=== PATIENT | female | born 1955 | race Caucasian/White ===

== ENCOUNTER 2024-08-24 09:00 | Inpatient (IN) | payer MEDICARE ==
[~2024-08-24] VITALS: Ht 160 cm; Wt 91.1 kg
[2024-08-24] MEDS ORDERED: Ketorolac Tromethamine 30mg Vial IV ONE (09:30)
[2024-08-24] MEDS ORDERED: Ondansetron HCl 2 MG / ML 2ML Vial IV ONE (09:30)
[2024-08-24] MEDS ORDERED: NS 1,000 ML IV SCH ×2 (09:30→12:10)
[2024-08-24 09:41] LABS: BASOPHILS ABSOLUTE AUTO 0.04 K/mm3 (0.00-0.23); BASOPHILS PERCENT AUTO 0 % (0-2); EOSINOPHILS ABSOLUTE AUTO 0.16 K/mm3 (0.00-0.68); EOSINOPHILS PERCENT AUTO 1 % (0-6); Hematocrit 38.7 % (33.0-51.0); Hemoglobin 13.7 g/dL (11.5-16.0); IMMATURE GRAN ABSOLUTE AUTO 0.07 K/mm3 (0.00-0.10); IMMATURE GRAN PERCENT AUTO 0 % (0-1); LYMPHOCYTES ABSOLUTE AUTO 1.13 K/mm3 (0.84-5.20); LYMPHOCYTES PERCENT AUTO 6 % (21-46); MONOCYTES ABSOLUTE AUTO 1.47 K/mm3 (0.16-1.47); MONOCYTES PERCENT AUTO 8 % (4-13); Mean Corpuscular HGB 29.5 pg (26.0-34.0); Mean Corpuscular HGB Conc 35.4 g/dL (31.5-36.5); Mean Corpuscular Volume 83 fL (80-100); Mean Platelet Volume 10.7 fL (9.1-12.4); NEUTROPHILS ABSOLUTE AUTO 16.35 K/mm3 (1.96-9.15); NEUTROPHILS PERCENT AUTO 85 % (41-73); Platelet Count 301 K/mm3 (150-400); RDW Coefficient Variation 11.9 % (11.7-14.2); RDW Standard Deviation 36.1 fL (35.1-46.3); Red Blood Cell Count 4.65 M/mm3 (3.80-5.20); White Blood Cell Count 19.22 K/mm3 (4.00-11.30)
[2024-08-24 09:53] LABS: Albumin, Blood 3.3 g/dL (3.4-5.0); Albumin/Globulin Ratio 0.9 (0.8-1.8); Bilirubin, Direct 0.2 mg/dL (0.0-0.3); Bilirubin, Indirect 0.6 mg/dL (0.1-0.7); Bilirubin, Total 0.8 mg/dL (0.1-1.0); Bun/Creatinine Ratio 23.3 (12.0-20.0); Calcium, Blood 8.9 mg/dL (8.5-10.1); Creatinine, Blood 1.03 mg/dL (0.40-1.00); Globulin, Blood 3.7 g/dL (2.2-4.0); Potassium, Blood 3.5 mmol/L (3.5-5.5)
[2024-08-24 11:00] LABS: Source, Urine Clean Catch
[2024-08-24 11:08] LABS: Appearance, Urine Clear (Clear); Bilirubin, Urine Neg (Neg); Blood, Urine Neg (Neg); Color, Urine Yellow (P-Yellow); Glucose Qualitative, Urine Neg (Neg); Ketones, Urine Neg (Neg); Leukocyte Esterase, Urine Neg (Neg); Nitrite, Urine Neg (Neg); Protein, Urine 1+ (Neg); Specific Gravity, Urine 1.005 (1.003-1.022); Urobilinogen, Urine NORM (Normal)
[2024-08-24] MEDS ORDERED: Azithromycin 500 MG in NS 250 ML IV ONE (11:20)
[2024-08-24] MEDS ORDERED: HYDROmorphone HCl/Pf 1MG SYR IV PRN (12:05)
[2024-08-24] MEDS ORDERED: FLU VACC TS2024-25(6MOS UP)/PF 45 MCG/0.5 ML SYRINGE IM SCH (12:10)
[2024-08-24 12:59] LABS: Hematocrit 35.6 % (33.0-51.0); Hemoglobin 12.6 g/dL (11.5-16.0)
[2024-08-24 13:13] LABS: International Normalized Ratio 1.12; Prothrombin Time Results 11.9 Sec (9.7-11.5)
[2024-08-24 15:43] LABS: Automated BF RBC Count 0.006 M/mm3 (0-0); Automated BF WBC Count 1.884 K/mm3 (0-999)
[2024-08-24 15:44] LABS: Body Fluid WBC Count 1884 /mm3 (0-999); RBC Count, Body Fluid 6000 /mm3 (0-0)
[2024-08-24 15:49] VITALS: BP 120/59
[2024-08-24 15:49] LABS: Appearance, Body Fluid Cloudy (Clear)
[2024-08-24 15:57] LABS: Lactate Dehydrogenase, Body Fl 652 U/L
[2024-08-24] MEDS ORDERED: LOSARTAN-HCTZ1 EAC5 PO ×2 (16:10)
[2024-08-24] MEDS ORDERED: Bentyl10 MG PO ×2 (16:10)
[2024-08-24] MEDS ORDERED: FISH OIL PO ×2 (16:12)
[2024-08-24] MEDS ORDERED: VITAMIN E PO ×2 (16:12)
[2024-08-24] MEDS ORDERED: CRESTOR PO ×2 (16:14)
[2024-08-24] MEDS ORDERED: ELEMENTAL ZINC30 MG PO ×2 (16:14)
[2024-08-24] MEDS ORDERED: ASPI81CH PO ×2 (16:14)
[2024-08-24] MEDS ORDERED: VITAMIN D5000 UNIT PO ×2 (16:16)
[2024-08-24] MEDS ORDERED: TUMERIC PO ×2 (16:17)
[2024-08-24] MEDS ORDERED: CALCIUM PO ×2 (16:17)
[2024-08-24] MEDS ORDERED: COQ1050 MG PO ×2 (16:18)
[2024-08-24] MEDS ORDERED: K2 PO ×2 (16:19)
[2024-08-24 16:33] LABS: Total Cell Count, Body Fluid 100
[2024-08-24 16:44] LABS: Hematocrit 34.3 % (33.0-51.0); Hemoglobin 12.1 g/dL (11.5-16.0)
--- NOTE | 2024-08-24 17:22 | NUR ---
ADMISSION SUMMARY PT ADMITTED TO UNIT AT APPROX 1545 VIA WHEELCHAIR. PT ABLE TO STAND AND AMBULATE INDEPENDENTLY TO HOSPITAL BED. PT DENIES ANY CURRENT PAIN OR DISTRESS, REPORTS ABD PAIN HAS SUBSIDED SINCE DIALUDID AND PARACENTESIS. VITALS WNL. ADMISSION COMPLETED INCLUDING MED REC. CONSULT CALLED IN BY ELIAS FOR POSSSIBLE COLONOSCOPY. PT ORIENTED TO ROOM AND CALL LIGHT SYSTEM. PT RESTING IN BED WITH BED IN LOWEST POSITION AND CALL LIGHT WITHIN REACH. AT BEDSIDE.
[2024-08-24 18:34] LABS: Albumin, Body Fluid 2.5 g/dL
[2024-08-24 19:04] LABS: Protein, Body Fluid 4.5 g/dL
[2024-08-24 19:28] VITALS: BP 125/65
[2024-08-24] MEDS ORDERED: CefTRIAXone Sodium 1,000 MG in NS 100 ML IV SCH (20:00)
[2024-08-24 20:38] LABS: Hematocrit 36.3 % (33.0-51.0); Hemoglobin 12.5 g/dL (11.5-16.0)
[2024-08-25 00:45] LABS: Hematocrit 34.7 % (33.0-51.0); Hemoglobin 11.9 g/dL (11.5-16.0)
[2024-08-25 03:54] VITALS: BP 122/71
--- NOTE | 2024-08-25 05:49 | NUR ---
SHIFT SUMMARY NO ACUTE CHANGES THIS SHIFT. PT TO START BOWEL PREP AT 0600 IN ANTICIPATION OF COLONOSCOPY LATER TODAY. PT IS AGAIN HAVING BLOODY STOOL AND ABDOMINAL PAIN. MEDICATED ONCE W/ DILAUDID FOR PAIN. PT IS PLEASANT AND COOPERATIVE WITH CARE. BED IN LOW POSITION AND CALL LIGHT IN REACH.
[2024-08-25] MEDS ORDERED: Sodium, Potassium,Mag Sulfates 354 ML PO ONE (06:00)
[2024-08-25 06:09] LABS: BASOPHILS ABSOLUTE AUTO 0.03 K/mm3 (0.00-0.23); BASOPHILS PERCENT AUTO 0 % (0-2); EOSINOPHILS ABSOLUTE AUTO 0.06 K/mm3 (0.00-0.68); EOSINOPHILS PERCENT AUTO 0 % (0-6); Hematocrit 35.1 % (33.0-51.0); Hemoglobin 12.3 g/dL (11.5-16.0); IMMATURE GRAN ABSOLUTE AUTO 0.05 K/mm3 (0.00-0.10); IMMATURE GRAN PERCENT AUTO 0 % (0-1); LYMPHOCYTES ABSOLUTE AUTO 1.12 K/mm3 (0.84-5.20); LYMPHOCYTES PERCENT AUTO 8 % (21-46); MONOCYTES ABSOLUTE AUTO 1.02 K/mm3 (0.16-1.47); MONOCYTES PERCENT AUTO 8 % (4-13); Mean Corpuscular Volume 86 fL (80-100); NEUTROPHILS ABSOLUTE AUTO 11.32 K/mm3 (1.96-9.15); NEUTROPHILS PERCENT AUTO 83 % (41-73); RDW Coefficient Variation 12.1 % (11.7-14.2); RDW Standard Deviation 37.5 fL (35.1-46.3)
[2024-08-25 06:27] LABS: Mean Platelet Volume 10.7 fL (9.1-12.4); Platelet Count 209 K/mm3 (150-400)
[2024-08-25] MEDS ORDERED: Ondansetron HCl 2 MG / ML 2ML Vial IV ONE (06:30)
[2024-08-25 06:31] LABS: Bun/Creatinine Ratio 30.7 (12.0-20.0); Calcium, Blood 7.7 mg/dL (8.5-10.1); Creatinine, Blood 0.82 mg/dL (0.40-1.00); Potassium, Blood 3.6 mmol/L (3.5-5.5)
[2024-08-25 07:05] VITALS: BP 128/67
[2024-08-25 07:09] LABS: Cancer Antigen 125 355.2 U/mL (1.5-35.0)
[2024-08-25] MEDS ORDERED: Ondansetron HCl 2 MG / ML 2ML Vial IV PRN (09:05)
[2024-08-25 09:21] LABS: Hematocrit 35.8 % (33.0-51.0); Hemoglobin 12.4 g/dL (11.5-16.0)
[2024-08-25] MEDS ORDERED: Lactated Ringer's 1,000 ML IV SCH (10:30)
[2024-08-25 12:27] LABS: Hematocrit 36.1 % (33.0-51.0); Hemoglobin 12.5 g/dL (11.5-16.0)
[2024-08-25] MEDS ORDERED: propofoL 40 ML IV ONE (13:09)
[2024-08-25 13:31] VITALS: BP 156/84
[2024-08-25] MEDS ORDERED: propofoL 20 ML IV ONE (13:34)
--- NOTE | 2024-08-25 13:35 | NUR ---
PT HAS 20G IV TO RIGHT AC THAT FLUSHES WELL AND FLOWS TO GRAVITY.
[2024-08-25] MEDS ORDERED: Lidocaine HCl 4% 5 ML SDA ONE (13:55)
--- NOTE | 2024-08-25 14:06 | NUR ---
08/25/24 1406 Salvatore Gillespie History, Chart, Medications and Allergies reviewed before start of procedure.3-LEAD EKG REVIEWED WITH PHYSICIAN PRIOR TO START OF PROCEDURE.O2 VIA POM INTACT THROUGHOUT SEDATION/PROCEDURE. See Anesthesia record.
[2024-08-25] MEDS ORDERED: Aspirin 81 MG Chew PO SCH (15:00)
[2024-08-25 15:12] VITALS: BP 131/75
[2024-08-25 16:47] VITALS: BP 122/66
--- NOTE | 2024-08-25 18:33 | NUR ---
SHIFT SUMMARY NO ACUTE CHANGES, VITALS STABLE, PT ABLE TO MAKE NEEDS KNOWN AND USE CALL LIGHT APPROPRIATELY. COLONOSCOPY COMPLETED - PETRE IN ROOM TO REVIEW RESULTS AND UPDATE RE POC. ELIAS AWARE OF FINDINGS. NEW ONSET VOMITING THIS AM - RELIEVED WITH IV ZOFRAN. ABD PAIN TREATED PER EMAR. PT TOLERATING INTAKE POST PROCEDURE AND VITALS WNL. PT REPORTS BM CONTINUE TO BE LOOSE AND REDISH IN COLOR. POSSIBLE OBGYN CONSULT TOMORROW DUE TO ELEVATED CANCER MARKERS WITH NO RESULTS FROM COLONOSCOPY INDICATING GI CANCER. PT CURRENTLY RESTING IN HOSPITAL BED WITH BED IN LOWEST POSITION AND CALL LIGHT WITHIN REACH. AT BEDSIDE.
[2024-08-25 20:55] VITALS: BP 122/75
[2024-08-25] MEDS ORDERED: CefTRIAXone Sodium 2,000 MG in NS 100 ML IV SCH (21:16)
[2024-08-26 00:37] VITALS: BP 112/65
[2024-08-26 04:52] VITALS: BP 111/62
[2024-08-26 07:08] VITALS: BP 112/65
[2024-08-26] MEDS ORDERED: NS 250 ML IV PRN (10:25)
[2024-08-26] MEDS ORDERED: Clotrimazole 10 MG Troche MT SCH (14:00)
[2024-08-26 16:39] VITALS: BP 110/76
--- NOTE | 2024-08-26 17:41 | NUR ---
SHIFT SUMMARY MS SINGH HAS NOT HAD ANY RECTAL BLEEDING THIS SHIFT. C/O RLQ ABDOMINAL PAIN, GIVEN ONE DOSE OF IV DILAUDID AND A HEATING PAD WHICH HELPED, ALSO HAD AN EPISODE OF NAUSEA TREATED WITH ZOFRAN. SUPPORTIVE AT BEDSIDE. GOOD PO INTAKE, IVF DISCONTINUED. UP INDEPENDENTLY WITH STEADY GAIT IN THE HALLS. BED LOW, CALL LIGHT IN REACH.
[2024-08-26 19:53] VITALS: BP 130/71
[2024-08-26] MEDS ORDERED: Simethicone 80 MG Chew PO PRN (23:10)
--- NOTE | 2024-08-26 23:10 | NUR ---
NEW T-ORDER FROM ON-CALL HOSPITALIST MARLENE:SIMETHICONE PO 80MG Q6PRN. ENTERED TO [facility], SEE EMAR.
--- NOTE | 2024-08-27 03:09 | NUR ---
NEW T-ORDERS FROM ON-CALL HOSPITALIST : TORADOL IV 15MG ONCE, AND TYLENOL 650MG Q4 PRN PO. ENTERED TO [employer], SEE EMAR. NO ADDITIONAL NEW ORDERS AT THIS TIME.
[2024-08-27] MEDS ORDERED: Ketorolac Tromethamine 15mg Vial IV ONE (03:10)
[2024-08-27] MEDS ORDERED: Acetaminophen 325 MG TABLET PO PRN (03:10)
--- NOTE | 2024-08-27 03:19 | NUR ---
@1573 BY THE BEDSIDE. PT HAVING SEVERE ABDOMINAL PAIN. NEW ORDERS: LAB-LACTIC ACID STAT. AND DRAW ALL AM LABS STAT. CHARGE NURSE NOTIFIED.
[2024-08-27 03:39] VITALS: BP 126/74
--- NOTE | 2024-08-27 03:53 | NUR ---
SHIFT SUMMARY PT REPORTS UPPER ABDOMINAL PAIN 6-01/09 @[facility] AND @0300. BY THE BEDSIDE @0300. PT C/O TIGHTENED UPPER ABD, AND SEVERE ABD PAIN. PT DESCRIBES SIMILAR PAIN PRIOR PARACENTESIS 2D AGO. ABDOMEN TENDER, MODERATELY TIGHT. BOWEL SOUNDS HYPOACTIVE. PT REPORTS UNABLE TO PASS GAS AND HAVE A BM. LAST BM 08/25 ADMISSION DAY. NEW ORDER FOR SIMETHICONE, APAP AND ONE TIME TORADOL IV 15MG RECEIVED FROM DR. VICTORIA. SUPPORTIVE BY THE BEDSIDE. NEW VERBAL ORDER RECEIVED FROM TO GET AM LABS DONE STAT INCLUDING LACTIC ACID. PT REFUSES TO HAVE OPIOID MEDICATION D/T POSSIBLE CONSTIPATION. PLAN IS TO DISCHARGE HOME TODAY. BED AT THE LOWEST POSITION, CALL LIGHT W/I REACH. PT IS VERY PLEASANT, A/O X4, AND ABLE TO MAKE HER NEEDS KNOWN.
[2024-08-27 04:20] LABS: BASOPHILS ABSOLUTE AUTO 0.03 K/mm3 (0.00-0.23); BASOPHILS PERCENT AUTO 0 % (0-2); EOSINOPHILS ABSOLUTE AUTO 0.19 K/mm3 (0.00-0.68); EOSINOPHILS PERCENT AUTO 2 % (0-6); Hemoglobin 11.4 g/dL (11.5-16.0); IMMATURE GRAN ABSOLUTE AUTO 0.03 K/mm3 (0.00-0.10); IMMATURE GRAN PERCENT AUTO 0 % (0-1); LYMPHOCYTES ABSOLUTE AUTO 1.34 K/mm3 (0.84-5.20); LYMPHOCYTES PERCENT AUTO 14 % (21-46); MONOCYTES ABSOLUTE AUTO 0.82 K/mm3 (0.16-1.47); MONOCYTES PERCENT AUTO 8 % (4-13); Mean Corpuscular HGB 29.8 pg (26.0-34.0); Mean Corpuscular HGB Conc 34.5 g/dL (31.5-36.5); Mean Corpuscular Volume 86 fL (80-100); Mean Platelet Volume 10.2 fL (9.1-12.4); NEUTROPHILS PERCENT AUTO 75 % (41-73); Platelet Count 238 K/mm3 (150-400); RDW Coefficient Variation 12.3 % (11.7-14.2); RDW Standard Deviation 38.5 fL (35.1-46.3); Red Blood Cell Count 3.83 M/mm3 (3.80-5.20); White Blood Cell Count 9.81 K/mm3 (4.00-11.30)
[2024-08-27 04:40] LABS: Bun/Creatinine Ratio 22.1 (12.0-20.0); Calcium, Blood 7.7 mg/dL (8.5-10.1); Creatinine, Blood 0.86 mg/dL (0.40-1.00); Potassium, Blood 3.5 mmol/L (3.5-5.5)
[2024-08-27 07:37] VITALS: BP 131/72
[2024-08-27] MEDS ORDERED: Ketorolac Tromethamine 15mg Vial IV PRN (10:00)
[2024-08-27 16:09] VITALS: BP 128/74
--- NOTE | 2024-08-27 19:05 | NUR ---
SHIFT SUMMARY: NO EVENTS OR CHANGES WITH THE PATIENT THROUGHOUT THE SHIFT. PAIN AND NAUSEA MANAGEMENT. PATIENT HAS YET TO HAVE A BOWEL MOVEMENT. SHE IS IN BED, RESTING, NO SIGNS OR SYMPTOMS OF DISTRESS, PLAN OF CARE ONGOING; D/C 08/28/24.
[2024-08-27 19:21] VITALS: BP 128/90
[2024-08-27] MEDS ORDERED: Polyethylene Glycol 3350 17 gm PO PRN (21:10)
--- NOTE | 2024-08-27 21:30 | NUR ---
NEW T-ORDER FOR MIRALAX QD PRN PO RECEIVED FROM THE ON-CALL HOSPITALIST DR. BATRES. ENTERED TO [facility], SEE EMAR.
--- NOTE | 2024-08-28 03:09 | NUR ---
SHIFT SUMMARY NO ACUTE EVENTS DURING THIS SHIFT. NEW ORDER FOR MIRALAX PRN RECEIVED FROM THE ON-CALL HOSPITALIST. PT REPORTS 3/10 ABDOMINAL PAIN, DENIES A NEED FOR PAIN MEDICATION. SUPPORTIVE BY THE BEDSIDE. NO BM DURING THIS SHIFT. BOWEL TONES HYPOACTIVE PER AUSCULTATION. BED AT THE LOWEST POSITION, CALL LIGHT W/I REACH. PT IS A/O X4, VERY PLEASANT AND COOPERATIVE WITH CARE. PT IS ABLE TO MAKE HER NEEDS KNOWN.
[2024-08-28 05:14] VITALS: BP 139/91
[2024-08-28 07:22] VITALS: BP 112/84
[2024-08-28] MEDS ORDERED: CEFP200 PO ×2 (12:52)
[2024-08-28] MEDS ORDERED: CLOT10 MT ×2 (12:55)
[2024-08-28] MEDS ORDERED: HYDMOR2 PO ×2 (12:57)
[2024-08-28] MEDS ORDERED: ONDA4 ×2 (13:07)
[2024-08-28] MEDS ORDERED: SENN187 PO ×2 (13:08)
[2024-08-28] MEDS ORDERED: MIRALAX1714 PO ×2 (13:08)
--- NOTE | 2024-08-28 14:46 | NUR ---
DISCHARGE NOTE: WENT OVER DISCHARGE WITH THE PATIENT AND HER . SHE WAS MEDICATED AND IV REMOVED. PATIENT GOT DRESSED AND GATHERED BELONGINGS. SHE WAS WHEELED DOWN BY THIS RN, NO SIGNS OR SYMPTOMS OF DISTRESS DURING DISCHARGE.
[2024-08-29] MEDS ORDERED: METO10 PO (18:47)
[2024-08-29] MEDS ORDERED: HYDHCL25 PO (18:47)
== END 2024-08-28 13:57 | disposition home or self-care (01) | DRG 393 ==
LOC: ER 09:00 → MEDS 12:07
PROVIDERS: Internal Medicine Gastroenterology; Student in an Organized Health Care Education/Training Program; ADMIT Internal Medicine
PROC: 0W9G3ZX Drainage of Peritoneal Cavity, Percutaneous Approach, Diagnostic (ICD-10-PCS; principal; 2024-08-24)
PROC: 0DBM8ZX Excision of Descending Colon, Via Natural or Artificial Opening Endoscopic, Diagnostic (ICD-10-PCS; 2024-08-25)
PROC: 0DBN8ZX Excision of Sigmoid Colon, Via Natural or Artificial Opening Endoscopic, Diagnostic (ICD-10-PCS; 2024-08-25)
PROC: 0DB98ZX Excision of Duodenum, Via Natural or Artificial Opening Endoscopic, Diagnostic (ICD-10-PCS; 2024-08-25 13:30)
PROC: 0DB78ZX Excision of Stomach, Pylorus, Via Natural or Artificial Opening Endoscopic, Diagnostic (ICD-10-PCS; 2024-08-25 13:30)
DX: K55.9 Vascular disorder of intestine, unspecified (principal); K65.2 Spontaneous bacterial peritonitis; C78.6 Secondary malignant neoplasm of retroperitoneum and peritoneum; B37.0 Candidal stomatitis; R18.8 Other ascites; K29.50 Unspecified chronic gastritis without bleeding; K59.00 Constipation, unspecified; K64.4 Residual hemorrhoidal skin tags; Z90.49 Acquired absence of other specified parts of digestive tract; Z98.890 Other specified postprocedural states; Z88.5 Allergy status to narcotic agent; Z88.0 Allergy status to penicillin; Z88.1 Allergy status to other antibiotic agents; Z88.2 Allergy status to sulfonamides; Z88.8 Allergy status to other drugs, medicaments and biological substances; Z91.048 Other nonmedicinal substance allergy status; Z79.899 Other long term (current) drug therapy
CPT/HCPCS: 36415; 49083; 74177; 76705; 76830; 76856; 80048; 80076; 82042; 82378; 83605; 83615; 83690; 84157; 85014; 85018; 85025; 85610; 85730; 86304; 87040; 87070; 87075; 87205; 88108; 88305; 88341; 88342; 89051; 93005; 93010; 96374; 96375; 99285-25; A9270; J0696; J1171; J1885; J2003; J2405; J2704; J7030; J7050; J7120; Q9967

== ENCOUNTER 2024-08-29 15:25 | Emergency (ER) | payer MEDICARE ==
[~2024-08-29] VITALS: Ht 160 cm; Wt 95.7 kg
[~2024-08-29 15:25] MED LIST: ASPI81CH PO; Bentyl10 MG PO; CALCIUM PO; CEFP200 PO; CLOT10 MT; COQ1050 MG PO; CRESTOR PO; ELEMENTAL ZINC30 MG PO; FISH OIL PO; HYDMOR2 PO; K2 PO; LOSARTAN-HCTZ1 EAC5 PO; MIRALAX1714 PO; ONDA4; SENN187 PO; TUMERIC PO; VITAMIN D5000 UNIT PO; VITAMIN E PO
[2024-08-29] MEDS ORDERED: HYDROmorphone HCl/Pf 1MG SYR IV ONE (15:40)
[2024-08-29 16:01] LABS: BASOPHILS ABSOLUTE AUTO 0.04 K/mm3 (0.00-0.23); BASOPHILS PERCENT AUTO 0 % (0-2); EOSINOPHILS ABSOLUTE AUTO 0.12 K/mm3 (0.00-0.68); EOSINOPHILS PERCENT AUTO 1 % (0-6); IMMATURE GRAN ABSOLUTE AUTO 0.07 K/mm3 (0.00-0.10); IMMATURE GRAN PERCENT AUTO 1 % (0-1); LYMPHOCYTES ABSOLUTE AUTO 1.33 K/mm3 (0.84-5.20); LYMPHOCYTES PERCENT AUTO 14 % (21-46); MONOCYTES ABSOLUTE AUTO 0.79 K/mm3 (0.16-1.47); MONOCYTES PERCENT AUTO 8 % (4-13); Mean Corpuscular HGB 29.4 pg (26.0-34.0); Mean Corpuscular HGB Conc 35.1 g/dL (31.5-36.5); Mean Corpuscular Volume 84 fL (80-100); Mean Platelet Volume 10.1 fL (9.1-12.4); NEUTROPHILS ABSOLUTE AUTO 7.35 K/mm3 (1.96-9.15); NEUTROPHILS PERCENT AUTO 76 % (41-73); Platelet Count 333 K/mm3 (150-400); RDW Coefficient Variation 12.2 % (11.7-14.2); RDW Standard Deviation 37.2 fL (35.1-46.3); Red Blood Cell Count 4.42 M/mm3 (3.80-5.20)
[2024-08-29 16:22] LABS: Albumin, Blood 2.8 g/dL (3.4-5.0); Albumin/Globulin Ratio 0.8 (0.8-1.8); Bilirubin, Total 0.3 mg/dL (0.1-1.0); Bun/Creatinine Ratio 21.3 (12.0-20.0); Calcium, Blood 8.6 mg/dL (8.5-10.1); Creatinine, Blood 0.8 mg/dL (0.40-1.00); Globulin, Blood 3.4 g/dL (2.2-4.0); Magnesium, Blood 2.2 mg/dL (1.6-2.4); Potassium, Blood 3.9 mmol/L (3.5-5.5); Total Protein, Blood 6.2 g/dL (6.4-8.2)
[2024-08-29] MEDS ORDERED: HYDHCL25 PO (18:47)
[2024-08-29] MEDS ORDERED: METO10 PO (18:47)
== END 2024-08-29 19:07 | disposition home or self-care (01) ==
LOC: ER 15:25
PROVIDERS: Emergency Medicine
DX: R10.9 Unspecified abdominal pain (principal); G89.3 Neoplasm related pain (acute) (chronic); C56.9 Malignant neoplasm of unspecified ovary; J90 Pleural effusion, not elsewhere classified; R18.8 Other ascites; R06.02 Shortness of breath; I10 Essential (primary) hypertension; Z91.014 Allergy to mammalian meats; Z88.0 Allergy status to penicillin; Z88.2 Allergy status to sulfonamides; Z88.1 Allergy status to other antibiotic agents; Z88.5 Allergy status to narcotic agent; Z79.899 Other long term (current) drug therapy; C79.9 Secondary malignant neoplasm of unspecified site
CPT/HCPCS: 71260; 80053; 83605; 83690; 83735; 83880; 84484; 85025; 93005; 93010; 96374-59; 99285-25; J1171; Q9967

== ENCOUNTER 2024-09-04 11:32 | Emergency (ER) | payer MEDICARE ==
[~2024-09-04] VITALS: Ht 162.6 cm; Wt 81.7 kg
[~2024-09-04 11:32] MED LIST changes: +HYDHCL25 PO; +METO10 PO
[2024-09-04 12:09] LABS: BASOPHILS ABSOLUTE AUTO 0.04 K/mm3 (0.00-0.23); BASOPHILS PERCENT AUTO 0 % (0-2); EOSINOPHILS ABSOLUTE AUTO 0.06 K/mm3 (0.00-0.68); EOSINOPHILS PERCENT AUTO 1 % (0-6); Hematocrit 38.2 % (33.0-51.0); Hemoglobin 12.9 g/dL (11.5-16.0); IMMATURE GRAN ABSOLUTE AUTO 0.02 K/mm3 (0.00-0.10); IMMATURE GRAN PERCENT AUTO 0 % (0-1); LYMPHOCYTES ABSOLUTE AUTO 0.91 K/mm3 (0.84-5.20); LYMPHOCYTES PERCENT AUTO 8 % (21-46); MONOCYTES ABSOLUTE AUTO 0.62 K/mm3 (0.16-1.47); MONOCYTES PERCENT AUTO 6 % (4-13); Mean Corpuscular HGB 29.4 pg (26.0-34.0); Mean Corpuscular HGB Conc 33.8 g/dL (31.5-36.5); Mean Corpuscular Volume 87 fL (80-100); Mean Platelet Volume 9.9 fL (9.1-12.4); NEUTROPHILS ABSOLUTE AUTO 9.39 K/mm3 (1.96-9.15); NEUTROPHILS PERCENT AUTO 85 % (41-73); Platelet Count 361 K/mm3 (150-400); RDW Coefficient Variation 12.8 % (11.7-14.2); RDW Standard Deviation 40.7 fL (35.1-46.3); Red Blood Cell Count 4.39 M/mm3 (3.80-5.20); White Blood Cell Count 11.04 K/mm3 (4.00-11.30)
[2024-09-04 12:28] LABS: Albumin, Blood 2.7 g/dL (3.4-5.0); Albumin/Globulin Ratio 0.8 (0.8-1.8); Bilirubin, Total 0.3 mg/dL (0.1-1.0); Bun/Creatinine Ratio 16.9 (12.0-20.0); Calcium, Blood 8.5 mg/dL (8.5-10.1); Creatinine, Blood 0.89 mg/dL (0.40-1.00); Globulin, Blood 3.6 g/dL (2.2-4.0); Potassium, Blood 4.2 mmol/L (3.5-5.5); Total Protein, Blood 6.3 g/dL (6.4-8.2)
[2024-09-04] MEDS ORDERED: Ondansetron HCl 2 MG / ML 2ML Vial IV ONE (12:45)
[2024-09-04] MEDS ORDERED: HYDROmorphone HCl/Pf 1MG SYR IV ONE (12:45)
[2024-09-04 12:59] LABS: International Normalized Ratio 1.04; Prothrombin Time Results 11.1 Sec (9.7-11.5)
[2024-09-04] MEDS ORDERED: DILAUDID 00.5 MG/0.2 PO (15:12)
== END 2024-09-04 15:52 | disposition home or self-care (01) ==
LOC: ER 11:32
PROVIDERS: Student in an Organized Health Care Education/Training Program
DX: J90 Pleural effusion, not elsewhere classified (principal); R18.8 Other ascites; Z88.2 Allergy status to sulfonamides; Z88.1 Allergy status to other antibiotic agents; Z88.5 Allergy status to narcotic agent; Z88.8 Allergy status to other drugs, medicaments and biological substances; Z79.2 Long term (current) use of antibiotics; Z79.899 Other long term (current) drug therapy; I10 Essential (primary) hypertension
CPT/HCPCS: 49082; 49083; 71046; 80053; 83690; 83880; 84484; 85025; 85610; 85730; 93005; 93010; 96374-59; 96375-59; 99285-25; J1171; J2405

== ENCOUNTER 2024-09-10 19:08 | Emergency (ER) | payer MEDICARE ==
[~2024-09-10] VITALS: Ht 160 cm; Wt 93.0 kg
[~2024-09-10 19:08] MED LIST changes: +DILAUDID 00.5 MG/0.2 PO
[2024-09-10] MEDS ORDERED: HYDROmorphone HCl/Pf 1MG SYR IV ONE ×2 (19:50→22:35)
[2024-09-10] MEDS ORDERED: Ondansetron HCl 2 MG / ML 2ML Vial IV ONE (19:50)
[2024-09-10 19:55] LABS: BASOPHILS ABSOLUTE AUTO 0.04 K/mm3 (0.00-0.23); BASOPHILS PERCENT AUTO 1 % (0-2); EOSINOPHILS ABSOLUTE AUTO 0.19 K/mm3 (0.00-0.68); EOSINOPHILS PERCENT AUTO 2 % (0-6); Hematocrit 38.4 % (33.0-51.0); Hemoglobin 12.7 g/dL (11.5-16.0); IMMATURE GRAN ABSOLUTE AUTO 0.01 K/mm3 (0.00-0.10); IMMATURE GRAN PERCENT AUTO 0 % (0-1); LYMPHOCYTES ABSOLUTE AUTO 0.93 K/mm3 (0.84-5.20); LYMPHOCYTES PERCENT AUTO 12 % (21-46); MONOCYTES ABSOLUTE AUTO 0.79 K/mm3 (0.16-1.47); MONOCYTES PERCENT AUTO 10 % (4-13); Mean Corpuscular HGB 28.8 pg (26.0-34.0); Mean Corpuscular HGB Conc 33.1 g/dL (31.5-36.5); Mean Corpuscular Volume 87 fL (80-100); Mean Platelet Volume 9.8 fL (9.1-12.4); NEUTROPHILS ABSOLUTE AUTO 5.89 K/mm3 (1.96-9.15); NEUTROPHILS PERCENT AUTO 75 % (41-73); Platelet Count 435 K/mm3 (150-400); RDW Coefficient Variation 12.7 % (11.7-14.2); RDW Standard Deviation 40.8 fL (35.1-46.3); Red Blood Cell Count 4.41 M/mm3 (3.80-5.20); White Blood Cell Count 7.85 K/mm3 (4.00-11.30)
[2024-09-10 20:27] LABS: Albumin, Blood 2.7 g/dL (3.4-5.0); Albumin/Globulin Ratio 0.8 (0.8-1.8); Bilirubin, Total 0.3 mg/dL (0.1-1.0); Bun/Creatinine Ratio 20.3 (12.0-20.0); Calcium, Blood 9.1 mg/dL (8.5-10.1); Creatinine, Blood 0.89 mg/dL (0.40-1.00); Globulin, Blood 3.4 g/dL (2.2-4.0); Total Protein, Blood 6.1 g/dL (6.4-8.2)
[2024-09-10] MEDS ORDERED: HYDROmorphone HCl/Pf 1MG SYR ONE (22:17)
[2024-09-10 22:49] LABS: Automated BF RBC Count 0.011 M/mm3 (0-0); Automated BF WBC Count 0.592 K/mm3 (0-999)
[2024-09-10 23:07] LABS: Body Fluid WBC Count 592 /mm3 (0-999); RBC Count, Body Fluid 11000 /mm3 (0-0)
[2024-09-10 23:14] LABS: Glucose, Body Fluid 108 mg/dL; Lactate Dehydrogenase, Body Fl 532 U/L; Protein, Body Fluid 3.7 g/dL
[2024-09-10 23:37] LABS: Appearance, Body Fluid Hazy (Clear); Color, Body Fluid Yellow (None-Yellow); Total Cell Count, Body Fluid 100
== END 2024-09-11 00:09 | disposition home or self-care (01) ==
LOC: ER 19:08
PROVIDERS: Student in an Organized Health Care Education/Training Program
DX: R18.8 Other ascites (principal); Z88.0 Allergy status to penicillin; Z88.1 Allergy status to other antibiotic agents; Z88.2 Allergy status to sulfonamides; Z79.899 Other long term (current) drug therapy; I10 Essential (primary) hypertension
CPT/HCPCS: 49082; 80053; 82945; 83615; 83690; 84157; 85025; 87070; 87205; 89051; 93005; 93010; 96374-59; 96375-59; 99284-25; J1171; J2405

== ENCOUNTER 2024-09-19 17:24 | Inpatient (IN) | payer MEDICARE ==
[~2024-09-19] VITALS: Ht 167.6 cm; Wt 97.1 kg
[2024-09-19 18:25] LABS: BASOPHILS ABSOLUTE AUTO 0.01 K/mm3 (0.00-0.23); BASOPHILS PERCENT AUTO 0 % (0-2); EOSINOPHILS ABSOLUTE AUTO 0.02 K/mm3 (0.00-0.68); EOSINOPHILS PERCENT AUTO 0 % (0-6); Hematocrit 38.1 % (33.0-51.0); Hemoglobin 12.5 g/dL (11.5-16.0); IMMATURE GRAN ABSOLUTE AUTO 0.01 K/mm3 (0.00-0.10); IMMATURE GRAN PERCENT AUTO 0 % (0-1); LYMPHOCYTES ABSOLUTE AUTO 0.82 K/mm3 (0.84-5.20); LYMPHOCYTES PERCENT AUTO 11 % (21-46); MONOCYTES ABSOLUTE AUTO 0.15 K/mm3 (0.16-1.47); MONOCYTES PERCENT AUTO 2 % (4-13); Mean Corpuscular HGB Conc 32.8 g/dL (31.5-36.5); Mean Corpuscular Volume 85 fL (80-100); NEUTROPHILS ABSOLUTE AUTO 6.16 K/mm3 (1.96-9.15); NEUTROPHILS PERCENT AUTO 86 % (41-73); Platelet Count 430 K/mm3 (150-400); RDW Coefficient Variation 13.1 % (11.7-14.2); RDW Standard Deviation 40.4 fL (35.1-46.3); Red Blood Cell Count 4.47 M/mm3 (3.80-5.20); White Blood Cell Count 7.17 K/mm3 (4.00-11.30)
[2024-09-19 18:48] LABS: Albumin, Blood 2.6 g/dL (3.4-5.0); Albumin/Globulin Ratio 0.7 (0.8-1.8); Bilirubin, Total 0.5 mg/dL (0.1-1.0); Bun/Creatinine Ratio 29.2 (12.0-20.0); Calcium, Blood 7.9 mg/dL (8.5-10.1); Creatinine, Blood 0.82 mg/dL (0.40-1.00); Globulin, Blood 3.5 g/dL (2.2-4.0); Potassium, Blood 4.4 mmol/L (3.5-5.5); Total Protein, Blood 6.1 g/dL (6.4-8.2)
[2024-09-19] MEDS ORDERED: HYDROmorphone HCl/Pf 1MG SYR IV ONE (19:45)
[2024-09-19] MEDS ORDERED: Ondansetron HCl 2 MG / ML 2ML Vial IV ONE (19:45)
[2024-09-19] MEDS ORDERED: Lactated Ringer's 1,000 ML IV ONE (19:45)
[2024-09-19 19:50] LABS: Magnesium, Blood 2.6 mg/dL (1.6-2.4)
[2024-09-19 20:30] VITALS: BP 131/70
[2024-09-19] MEDS ORDERED: CefTRIAXone Sodium 1,000 MG in NS 100 ML IV ONE (21:50)
[2024-09-19] MEDS ORDERED: HyDROXyzine HCl 25 MG Tab PO ONE (22:15)
[2024-09-19] MEDS ORDERED: Ondansetron HCl 2 MG / ML 2ML Vial IV PRN (22:25)
[2024-09-19] MEDS ORDERED: Azithromycin 500 MG in NS 250 ML IV SCH (23:07)
[2024-09-19] MEDS ORDERED: Albumin (Human) 25gm/100ml 100 ML IV ONE (23:10)
[2024-09-19] MEDS ORDERED: FentaNYL Citrate 50 MCG/ML 2 ML Injection IV PRN (23:10)
--- NOTE | 2024-09-19 23:23 | NUR ---
REPORT RECEIVED FROM AYANA LOPEZ RN AND AWAITING PT T/F TO ROOM 304.
[2024-09-19 23:42] VITALS: BP 149/83
[2024-09-20] MEDS ORDERED: HYDROmorphone HCl/Pf 1MG SYR IV PRN ×2 (00:30→02:30)
[2024-09-20 00:35] LABS: Source, Urine Voided
[2024-09-20 00:43] LABS: Bilirubin, Urine Neg (Neg); Blood, Urine 1+ (Neg); Glucose Qualitative, Urine Neg (Neg); Ketones, Urine Neg (Neg); Leukocyte Esterase, Urine 3+ (Neg); Nitrite, Urine Neg (Neg); Protein, Urine 2+ (Neg); Specific Gravity, Urine 1.015 (1.003-1.022); Urobilinogen, Urine NORM (Normal)
[2024-09-20 00:44] LABS: Appearance, Urine Hazy (Clear); Color, Urine Yellow (P-Yellow)
[2024-09-20 01:13] LABS: Influenza A, PCR NEGATIVE (NEGATIVE); Influenza B, PCR NEGATIVE (NEGATIVE); Resp Syncytial Virus, PCR NEGATIVE (NEGATIVE); SARS-Cov-2 (COVID-19) PCR, MMC NEGATIVE (NEGATIVE)
[2024-09-20 01:16] LABS: Bacteria Few /hpf; Red Blood Cells, Urine 0-2 /hpf (0-2); Squamous Epithelial Cells Few /hpf (Few); White Blood Cells, Urine 50-100 /hpf (0-5)
[2024-09-20] MEDS ORDERED: FentaNYL Citrate 50 MCG/ML 2 ML Injection IV PRN (04:00)
[2024-09-20 04:22] VITALS: BP 131/75
[2024-09-20 05:15] LABS: BASOPHILS ABSOLUTE AUTO 0.01 K/mm3 (0.00-0.23); BASOPHILS PERCENT AUTO 0 % (0-2); EOSINOPHILS ABSOLUTE AUTO 0.02 K/mm3 (0.00-0.68); EOSINOPHILS PERCENT AUTO 0 % (0-6); Hemoglobin 11.1 g/dL (11.5-16.0); IMMATURE GRAN ABSOLUTE AUTO 0.01 K/mm3 (0.00-0.10); IMMATURE GRAN PERCENT AUTO 0 % (0-1); LYMPHOCYTES ABSOLUTE AUTO 0.56 K/mm3 (0.84-5.20); LYMPHOCYTES PERCENT AUTO 9 % (21-46); MONOCYTES ABSOLUTE AUTO 0.14 K/mm3 (0.16-1.47); MONOCYTES PERCENT AUTO 2 % (4-13); Mean Corpuscular HGB Conc 32.6 g/dL (31.5-36.5); Mean Corpuscular Volume 86 fL (80-100); NEUTROPHILS ABSOLUTE AUTO 5.46 K/mm3 (1.96-9.15); NEUTROPHILS PERCENT AUTO 88 % (41-73); Platelet Count 330 K/mm3 (150-400); RDW Coefficient Variation 13.1 % (11.7-14.2); RDW Standard Deviation 40.9 fL (35.1-46.3); Red Blood Cell Count 3.96 M/mm3 (3.80-5.20)
[2024-09-20 05:40] LABS: Albumin, Blood 2.8 g/dL (3.4-5.0); Bilirubin, Total 0.4 mg/dL (0.1-1.0); Bun/Creatinine Ratio 25.5 (12.0-20.0); Calcium, Blood 7.9 mg/dL (8.5-10.1); Creatinine, Blood 0.82 mg/dL (0.40-1.00); Globulin, Blood 2.8 g/dL (2.2-4.0); Potassium, Blood 4.5 mmol/L (3.5-5.5); Total Protein, Blood 5.6 g/dL (6.4-8.2)
--- NOTE | 2024-09-20 06:10 | NUR ---
ADMIT AND SUMMARY: PT T/F'D TO ROOM 304 AT 2339 VIA GURNEY W/ AT BEDSIDE. SHE'S A/OX4, WAS ORIENTED TO ROOM AND CALL SYSTEM AND IS AWARE OF CURRENT LIMITATIONS. PT IS INDEPENDENT AT BASELINE AND UP AD JULITA TO BSC BUT IS SBA FOR DISTANCE D/T PAIN THAT LIMITS MOBILITY AND FOR ASSISTANCE MANAGING LINES. SHE C/O ABDO, FLANK AND RIB PAIN R/T ABDO DISTENSION, MALIGNANT ASCITES AND PROBABLE PERITONEAL CARCINOMATOSIS W/SUSPECTED OVARIAN CANCER. PT HAD 1ST CHEMO ON 09/17/24 AND PAIN, DYSPNEA AND SOB HAS WORSENED SINCE. SHE'S ON RA AT BASELINE BUT IS REQUIRING 2L 02 VIA NC TO SUSTAIN SPO2>92% W/CONT BIOX COMMENCED. CRACKLES AUSCULTATED TO BILAT LOWER LOBES AND IV ABX RECEIVED FOR PROBABLE PNM. COVID (-) BUT PT HAS POSS.UTI W/CX PENDING. PT WAS MEDICATED FOR TOLERABLE RELIEF OF PAIN W/PRN IV DILAUDID AFTER FENTANYL WAS INEFFECTIVE. PLAN IS FOR U/S GUIDED THORACETESIS W/PROBABLE REPEAT PARACENTESIS TODAY. NO ACUTE CHANGES, VSS/AFEBRILE. WILL REPORT TO DAY RN.
[2024-09-20 07:19] VITALS: BP 153/79
[2024-09-20] MEDS ORDERED: Sennosides 8.6 MG Tab PO SCH (09:00)
[2024-09-20 09:55] LABS: Automated BF WBC Count 0.547 K/mm3 (0-999)
[2024-09-20] MEDS ORDERED: HyDROXyzine HCl 25 MG Tab PO PRN (09:55)
--- NOTE | 2024-09-20 09:58 | NUR ---
6914- TELEPHONE VERBAL FROM SILVIA LIZAMA TO DC NPO AND ORDER REG DIET, ORDER ATARAX 25MG Q 8 PRN FOR ANXIETY, AND ORDER NYSTATIN FOR MOUTH THRUSH.
[2024-09-20 10:01] LABS: Appearance, Body Fluid Cloudy (Clear); Color, Body Fluid Red (None-Yellow)
[2024-09-20 10:02] LABS: Body Fluid WBC Count 547 /mm3 (0-999); RBC Count, Body Fluid 20000 /mm3 (0-0)
[2024-09-20] MEDS ORDERED: OxyCODONE HCL 5 MG TAB PO PRN (10:10)
[2024-09-20 10:16] LABS: Albumin, Body Fluid 1.6 g/dL; Lactate Dehydrogenase, Body Fl 449 U/L; Protein, Body Fluid 3.1 g/dL
[2024-09-20 10:38] LABS: Total Cell Count, Body Fluid 100
[2024-09-20 11:54] VITALS: BP 121/74
[2024-09-20] MEDS ORDERED: Nystatin 100,000 Unit/ML Susp 5 ML UDC PO SCH (13:00)
[2024-09-20 15:17] VITALS: BP 131/78
--- NOTE | 2024-09-20 18:14 | NUR ---
SHIFT SUMMARY: PT A&Ox4, HAS HAD PERSISTENT ABDOMINAL PAIN TODAY 01/09. TREATED PAIN WITH PRESCRIBED PAIN RELIEF; PT REPORTED PAIN LESSENED TO 4/10 UPON REASSESSMENT. PT GAIT IS WEAK AND SHE IS A 1 ASSIST TO THE BATHROOM. HER HAS BEEN AT BEDSIDE THROUGHOUT THE DAY AND ASSISTS HER NEEDED. PT UNDERWENT THORACENTESIS THIS MORNING AND HAS BEEN ON 1.5L OXYGEN MOST OF THE DAY. O2 SAT DECREASED TO 87% THIS EVENING WHEN SHE REMOVED HER OXYGEN TO WALK TO THE BATHROOM. INCREASED O2 TO 2L AND SAT RESOLVED TO >90%. RN ADDED EXTENSION TUBING TO HER O2 SO SHE CAN WALK TO THE BATHROON WITHOUT REMOVING IT. PT EXPERIENCED NAUSEA AT DINNERTIME, ZOFRAN ADMINISTERED. NAUSEA RESOLVED UPON REASSESSMENT. PT IS SITTING UP IN BED, AT BEDSIDE, CALL LIGHT WITHIN REACH.
--- NOTE | 2024-09-20 19:32 | NUR ---
Care assumed now for this patient. Report received from Heather AGUILLON. Patient and able to participate in bedside report. Patient is comfortable now. Continue Care.
[2024-09-20 20:08] VITALS: BP 143/86
[2024-09-20] MEDS ORDERED: CefTRIAXone Sodium 1,000 MG in NS 100 ML IV SCH (21:00)
[2024-09-20] MEDS ORDERED: Docusate Sodium 100 MG Cap PO SCH (21:00)
[2024-09-21] VITALS (7 sets, daily range): BP systolic 127–162; BP diastolic 71–92
--- NOTE | 2024-09-21 06:18 | NUR ---
PATIENT REQUESTING PAIN MEDICATIONS THROUGHOUT THE NIGHT. ALSO IS ANXIOUS AND ASKED FOR ATARAX. AT BEDSIDE. PATIENT HAD A SYSTOLIC PRESSURE IN THE 160'S THIS AM AND WAS CONCERNED. RECHECKED ONE HALF HOUR LATER AND SYSTOLIC WAS IN THE 130'S. ON 3 LITERS O2 NC. HAS BEEN HELPING PATIENT AMBULATE TO THE BATHROOM. SCHEDULED FOR A PARACENTESIS TODAY. CONTINUE CARE
[2024-09-21] MEDS ORDERED: OxyCODONE HCL 10 MG TABCR PO SCH (09:00)
[2024-09-21] MEDS ORDERED: HyDROXyzine HCl 25 MG Tab PO PRN (15:55)
--- NOTE | 2024-09-21 16:36 | NUR ---
SHIFT SUMMARY: PT DID NOT SLEEP WELL AND REQUESTED PAIN RELIEF THIS AM. TREATED PAIN THROUGHOUT THE DAY AND PT WAS ABLE TO TAKE SHORT NAPS WITH PAIN RELIEF. PT UNDERWENT ULTRASOUND GUIDED PARACENTESIS THIS MORNING AND REPORTED FEELING A LITTLE BETTER IN THE AFTERNOON. PT DESATS WITH EXERTION AND IS CURRENTLY ON 2.5L O2 AND MAINTAINING 94% SAT. GAVE PT INCENTIVE SPIROMETER ORDERED AND EDUCATED HER ON ITS USE; PT UNDERSTOOD AND ACKNOWLEDGED EDUCATION. PT IS CURRENTLY RESTING, WATCHING TV, CALL LIGHT WITHIN REACH. NO ACUTE EVENTS TODAY.
--- NOTE | 2024-09-21 18:08 | NUR ---
PATIENT STATES OXYCONTIN IS NOT CONTROLLING HER PAIN VERY WELL AND DOSE MAY NEED TO BE INCREASED.
[2024-09-21] MEDS ORDERED: OxyCODONE HCL 5 MG TAB PO PRN (21:35)
[2024-09-21] MEDS ORDERED: HYDROmorphone HCl/Pf 1MG SYR IV ONE (21:35)
--- NOTE | 2024-09-22 04:21 | NUR ---
PT A&O X4, VS WNL, UP TO VOID WITH ASSIST. TELE NSR IN 90'S, TAKING IN PO INTAKE WELL. PAIN WAS A PROBLEM AT START OF SHIFT, NOW RATES PAIN 4-5 VERSES 10, UTILIZING OXYCONTIN, AND THEN OXYCODONE 5MG EVERY 2HRS PRN. PT REMAINS ON IVABX, AND NYSTATIN S&S FOR THRUSH. O2 @2L/ NC. NO ISSUE SINCE PARACENTESIS. AT BEDSIDE.
[2024-09-22 04:26] VITALS: BP 140/76
[2024-09-22 07:19] VITALS: BP 138/78
[2024-09-22 11:16] VITALS: BP 130/85
[2024-09-22] MEDS ORDERED: OxyCODONE HCL 5 MG TAB PO PRN (13:15)
[2024-09-22] MEDS ORDERED: LORazepam 1 MG Tab PO ONE (14:00)
[2024-09-22] MEDS ORDERED: HYDMOR4 PO (14:00)
[2024-09-22] MEDS ORDERED: [UNRECOGNIZED DRUG - CODE] SS (14:05)
--- NOTE | 2024-09-22 15:29 | NUR ---
1505-DC PT LEFT IN STABLE CONDITION. PT LEFT WITH PORTABLE OXYGEN. PT GIVEN HARD SCRIPT AND COPY MADE-PLACED IN CHART. PT IN WC DOWN FOR DC WITH .
== END 2024-09-22 15:12 | disposition home or self-care (01) | DRG 374 ==
LOC: ER 17:24 → MEDS 21:56 → ERHOLD 21:56 → MEDS 23:18
PROVIDERS: Student in an Organized Health Care Education/Training Program; ADMIT Internal Medicine
PROC: 0W993ZZ Drainage of Right Pleural Cavity, Percutaneous Approach (ICD-10-PCS; principal; 2024-09-20)
DX: C78.6 Secondary malignant neoplasm of retroperitoneum and peritoneum (principal); J18.9 Pneumonia, unspecified organism; J96.01 Acute respiratory failure with hypoxia; J91.0 Malignant pleural effusion; R18.0 Malignant ascites; J94.8 Other specified pleural conditions; E87.1 Hypo-osmolality and hyponatremia; C56.9 Malignant neoplasm of unspecified ovary; E88.09 Other disorders of plasma-protein metabolism, not elsewhere classified; I10 Essential (primary) hypertension; K58.9 Irritable bowel syndrome, unspecified; K59.00 Constipation, unspecified; F41.9 Anxiety disorder, unspecified; Z88.0 Allergy status to penicillin; Z88.2 Allergy status to sulfonamides; Z88.1 Allergy status to other antibiotic agents; Z88.5 Allergy status to narcotic agent
CPT/HCPCS: 0241U; 32555; 36415; 49083; 71045; 74177; 80053; 81001; 82042; 83615; 83690; 83735; 83880; 84157; 85025; 87077; 87086; 87186; 88108; 88305; 88341; 88342; 89051; 93005; 93010; 94761; 94762; 96374-59; 96375; 99285-25; A9270; J0456; J0696; J1171; J2405; J3010; J7050; J7120; P9047; Q9967

== ENCOUNTER 2024-09-23 07:52 | Emergency (ER) | payer MEDICARE ==
[~2024-09-23] VITALS: Ht 160 cm; Wt 93.0 kg
[~2024-09-23 07:52] MED LIST changes: +HYDMOR4 PO; +[UNRECOGNIZED DRUG - CODE] SS
[2024-09-23 08:41] LABS: Hematocrit 33.3 % (33.0-51.0); Hemoglobin 11.3 g/dL (11.5-16.0); Mean Corpuscular HGB 28.8 pg (26.0-34.0); Mean Corpuscular HGB Conc 33.9 g/dL (31.5-36.5); Mean Corpuscular Volume 85 fL (80-100); Platelet Count 231 K/mm3 (150-400); RDW Standard Deviation 40.5 fL (35.1-46.3); Red Blood Cell Count 3.93 M/mm3 (3.80-5.20); White Blood Cell Count 2.64 K/mm3 (4.00-11.30)
[2024-09-23 08:42] LABS: Base Excess Venous 2.7 mmol/L; Bicarbonate Venous 26.6 mmol/L (24.0-30.0); PCO2 Venous 38.1 mmHg (38-42); pH Blood Venous 7.45 (7.34-7.37)
[2024-09-23 09:04] LABS: Albumin, Blood 2.4 g/dL (3.4-5.0); Albumin/Globulin Ratio 0.8 (0.8-1.8); Bilirubin, Total 0.3 mg/dL (0.1-1.0); Bun/Creatinine Ratio 21.5 (12.0-20.0); Calcium, Blood 8.3 mg/dL (8.5-10.1); Creatinine, Blood 0.74 mg/dL (0.40-1.00); Potassium, Blood 4.1 mmol/L (3.5-5.5); Total Protein, Blood 5.4 g/dL (6.4-8.2)
[2024-09-23 09:21] LABS: BASOPHILS PERCENT MAN 0 % (0-2); EOSINOPHILS ABSOLUTE MAN 0.05 K/mm3 (0.00-0.68); EOSINOPHILS PERCENT MAN 2 % (0-6); LYMPHOCYTES PERCENT MAN 23 % (21-46); MONOCYTES PERCENT MAN 0 % (4-13); NEUTROPHILS ABSOLUTE MAN 1.98 K/mm3 (1.96-9.15); SEG NEUTROPHILS PERCENT MAN 75 % (41-73); TOTAL CELLS COUNTED 100
== END 2024-09-23 10:15 | disposition home or self-care (01) ==
LOC: ER 07:52
PROVIDERS: Emergency Medicine
DX: R06.02 Shortness of breath (principal); J90 Pleural effusion, not elsewhere classified; Z79.899 Other long term (current) drug therapy; Z79.83 Long term (current) use of bisphosphonates; Z79.891 Long term (current) use of opiate analgesic; Z79.890 Hormone replacement therapy; Z79.51 Long term (current) use of inhaled steroids; Z79.52 Long term (current) use of systemic steroids; Z79.82 Long term (current) use of aspirin; Z79.1 Long term (current) use of non-steroidal anti-inflammatories (NSAID); I10 Essential (primary) hypertension; Z88.0 Allergy status to penicillin; Z88.2 Allergy status to sulfonamides; Z88.5 Allergy status to narcotic agent; Z88.8 Allergy status to other drugs, medicaments and biological substances; Z88.9 Allergy status to unspecified drugs, medicaments and biological substances; Z88.1 Allergy status to other antibiotic agents; Z91.048 Other nonmedicinal substance allergy status
CPT/HCPCS: 71045; 80053; 82803; 83880; 85025; 93005; 93010; 99284-25

== ENCOUNTER 2024-10-04 09:29 | Day surgery (SDC) | payer MEDICARE | END 2024-10-04 23:00 | disposition home or self-care (01) | LOC: US 09:29 | DX: C56.3 Malignant neoplasm of bilateral ovaries (principal); R18.0 Malignant ascites | CPT/HCPCS: 49083 ==

== ENCOUNTER 2024-11-08 10:49 | Day surgery (SDC) | payer MEDICARE | END 2024-11-08 23:50 | disposition home or self-care (01) | LOC: US 10:49 | DX: C56.3 Malignant neoplasm of bilateral ovaries (principal); R18.0 Malignant ascites; Z88.1 Allergy status to other antibiotic agents; Z88.2 Allergy status to sulfonamides; Z88.0 Allergy status to penicillin; Z88.5 Allergy status to narcotic agent | CPT/HCPCS: 76705 ==